=== PATIENT | female | born 1930 | race Caucasian/White ===

== ENCOUNTER → 2016-11-01 08:26 | Outpatient (CLI) | payer MEDICARE, BC ==
[2014-04-06 17:35] VITALS: BMI 33.7
[~2016-11-01 08:26] MED LIST: ATROVENT 0.03%30 ML NS; BRILINTA90 MG PO; CATAPRES0.1 MG PO; CHLORTHALIDONE25 MG PO; COMBIVENT RESPIM4 GM INH; COZAAR100 MG PO; GABAPENTIN100 MG PO; LOPRESSOR25 MG PO; OYSCO 500+D TAB1 TAB PO; PREVACID30 MG PO; RYTHMOL150 MG PO; SYNTHROID100 MCG PO; SYSTANE 0.3-0.4%5 ML EACH EYE; TRUSOPT 2 % OPT10 ML EACH EYE; ULTRACET TABLET1 TAB PO; VITAMIN D31000 UNI2 PO; XARELTO15 MG PO
== END | disposition home or self-care (01) ==
LOC: D.RAD 08:26
DX: J32.9 Chronic sinusitis, unspecified (principal)

== ENCOUNTER 2017-07-29 09:54 | Outpatient (CLI) | payer MEDICARE, BC ==
[~2017-07-29] VITALS: Ht 160 cm; Wt 81.8 kg
--- NOTE | ~2017-07-29 | OP ---
PATIENT NAME: JAVI LINTON MEDICAL RECORD: [id number] :34 LOCATION:D.CAT ADMISSION DATE: SURGEON: ARTURO MARTINEZ MD DATE OF OPERATION: 07/29/2017 PROCEDURE: DC cardioversion. INDICATION: Atrial fibrillation. PROCEDURE IN DETAIL: IV conscious sedation for anesthesia. Continuous heart rate, O2 saturation, blood pressure monitoring all undertaken, all of which remained stable. She received 1 shock at 275 joules restoring sinus rhythm. OVERALL IMPRESSION: Successful DC cardioversion from atrial fibrillation to sinus rhythm. TRANSINT:[id number] Voice Confirmation ID: [id number] DOCUMENT ID: [id number] ARTURO MARTINEZ MD at 1759 CC: [id number] DICTATION DATE: 07/29/17 1326 VIOLENT CRIMES DETECTIVE: 07/29/17 1335 DEP CLI 07/29/17 [place] [id number] [place] [address]
--- NOTE | ~2017-07-29 | HEMODYNAMI ---
PATIENT:JAVI LINTON MEDICAL RECORD: [id number] : 34 LOCATION:[facility] ADMISSION DATE: 07/29/17 Generatedon:07/29/201713:22 Patient name: JAVI LINTON Patient #: [id number] SSN: : 1930 Date of study: 07/29/2017 Page: Of Hemodynamic Procedure Report Patient Data Patient Demographics Procedure consent was obtained First Name: JAVI Gender: Female Last Name: SHAILA : 1930 [facility] Initial: SUSAN Age: 87 year(s) Patient #: [id number] Race: Unknown Additional ID: [id number] Contact details Address: [address] [place] [address] State: [place] City: [place] Zip code: [address] Past Medical History Allergies Allergen Reaction Date Comments Reported Other allergy 07/29/2017 ADHESIVE TAPE, AMIPAQUE, APA, BRILINTA, HYRDOCODONE, SULFA, VERSED, VICODIN Admission Admission Data Admission Date: 07/29/2017 Admission Time: 9:54 Height (in.): 5.4 BSA: 0.32 (m2) Height (cm.): 13.72 BMI: 4484.6 (kg/m2) Weight (lbs.): 186 Weight (kg.): 84.37 Lab Results Lab Result Date: 07/29/2017 Lab Result Time: 0:00 Biochemistry Name Units Result Min Max BUN mg/dl 31 --(----)-* 7 18 Creatinine mg/dl 1.6 --(----)-* 0.6 1.3 CBC Name Units Result Min Max Hemoglobin g/dl 12.3 *-(----)-- 13.5 17.5 Procedure Procedure Types Cath Procedure Diagnostic Procedure Cardioversion Procedure Description Procedure Date Procedure Date: 07/29/2017 Procedure Start Time: 13:13 Procedure End Time: 13:21 Procedure Staff Name Function Sang Shafer MD Performing Physician Yvonne Hollis RT Monitor Felipe Subramanian RT Monitor Shaun Velázquez RN Nurse Morgan Carroll CRNA Additional personnel Procedure Data Procedure Complications No complications Procedure Medications Medication Administration Route Dosage Oxygen NC 2 l/min Refer to Anesthesia Notes for Sedation Medications Hemodynamics Rest BSA: 0.32 (m2) HGB: 12.3 (g/dl) O2 Consumption: Estimated: 34.8 (ml/min) O2 Consumption indexed: Estimated:108.75 (ml/min/m) Heart Rate: 123 (bpm) Snapshots Pre Cath Intra NCS Post Cath Vital Signs Time Heart Resp SPO2 etCO2 NIBP (mmHg) Rhythm Pain Sedation Rate (ipm) (%) (mmHg) Status Level (bpm) 12:51:09 108 21 97 32.4 160/107(125) A-Fib 0 (11) 10(A) , No pain 12:56:18 117 17 98 30.2 156/111(137) A-Fib 0 (11) 10(A) , No pain 13:00:34 110 15 99 0 112/85(104) A-Fib 0 (11) 10(A) , No pain 13:04:44 118 15 100 12 120/87(103) A-Fib 0 (11) 10(A) , No pain 13:09:55 114 16 99 27.1 111/93(97) A-Fib 0 (11) 10(A) , No pain 13:14:03 123 16 98 12.8 130/91(105) NSR 0 (11) 9(A) , No pain 13:18:23 83 15 100 21.1 121/73(98) NSR 0 (11) 9(A) , No pain 13:20:20 84 17 99 27.1 119/81(100) NSR 0 (11) 10(A) , No pain Medications Time Medication Route Dose Verified Delivered Reason Notes Effectiven ess by by 12:54:10 Oxygen NC 2 Sang Dunn used for l/min Hollis Velázquez reception interviewer 12:54:15 Refer to Sang Dunn Anesthesia Hollis Velázquez RN Notes for Sedation Medications Procedure Log Time Note 12:33:17 Shaun Velázquez RN sent for patient. Start room use. 12:37:51 Patient Height : 5.4 inches 12:37:55 Patient Weight : 186 lbs 12:39:19 Patient allergic to Other allergyADHESIVE TAPE, AMIPAQUE, APA, BRILINTA, HYRDOCODONE, SULFA, VERSED, VICODIN 12:42:26 Time tracking: Regular hours 12:42:30 Plan of Care:Hemodynamics will remain stable., Cardiac rhythm will remain stable., Comfort level will be maintained., Respiratory function will remain adequate., Patient/ family verbilizes understanding of procedure., Procedure tolerated without complication., Recovers from procedure without complications.. 12:42:42 Patient arrived from Pre/Post Procedure Room to [facility] 3. Patient remains on bed/stretcher for procedure. 12:42:44 Warm blankets applied, and ronni hugger turned on for patient comfort. 12:42:45 Correct patient and procedure confirmed by team. 12:42:47 Signed procedure consent form obtained from patient. 12:42:48 ECG and BP/O2 sat monitors applied to patient. 12:42:55 Quick Combo opened to sterile field. 12:49:47 Vital chart was started 12:49:53 Baseline sample Acquired. 12:50:02 Rhythm: atrial fibrillation 12:50:08 Baseline sample Acquired. 12:50:11 Full Disclosure recording started 12:50:26 H&P Date Dictated: 07/28/2017 Within 30 days and on chart., H&P Addendum completed by physician on day of procedure. (MUST COMPLETE FOR ALL OUTPATIENTS). 12:50:27 Pre-procedure instructions explained to patient. 12:50:28 Pre-op teaching completed and patient verbalized understanding. 12:50:31 Family in patients room. 12:50:33 Patient NPO since Midnight. 12:50:56 Is the patient allergic to Iodine/contrast media? Yes. 12:50:58 Was the patient premedicated? No 12:51:03 Is patient on blood thinner?Yes 12:51:07 ACC The patient was administered the following blood thiners within the last 24 hours: Xarelto 12:51:38 Patient diabetic? No. 12:51:39 Patient not . Patient is over age 55. 12:51:41 Previous problem with sedation/anesthesia? No ? 12:51:43 Snore? No 12:51:44 Sleep apnea? No 12:51:45 Deviated septum? No 12:51:46 Opens mouth fully? Yes 12:51:46 Sticks out tongue? Yes 12:51:48 Airway obstruction? No ? 12:51:51 Dentures? Yes IN TIGHT 12:52:26 IV patent on arrival in left antecubital with 0.9% NaCl at O. 12:53:49 Lab Result : Creatinine 1.6 mg/dl 12:53:49 Lab Result : BUN 31 mg/dl 12:53:49 Lab Result : Hemoglobin 12.3 g/dl 12:53:52 Lab results completed and on chart. 12:53:55 Alarms reviewed by R. N. 12:53:55 Sharps counted by scrub and verified by R.N. 12:54:10 Oxygen 2 l/min NC was administered by Shaun Velázquez RN; used for procedure; 12:54:15 Refer to Anesthesia Notes for Sedation Medications was administered by Shaun Velázquez RN; ; 12:54:52 Morgan Carroll CRNA present and monitoring patient for TIVA. 13:01:55 --------ALL STOP TIME OUT------ 13:01:56 Final Timeout: patient, procedure, and site verified with staff and physician. All members of the team are in agreement. 13:02:04 Physical assessment completed. ASA score P 2 - A patient with mild systemic disease as per Sang Shafer MD. 13:02:08 Sedation plan: TIVA Medication:Propofol 13:02:10 Morgan Carroll CRNA present and monitoring patient for TIVA. 13:13:04 Procedure started. 13:13:56 Quick combo pads placed on patients chest and back. 13:14:42 Defibrillator synced and charged to 275 joules 13:14:52 Shock delivered. 13:15:03 Patient cardioverted to sinus rhythm . 13:15:36 Procedure ended.(Physican Out) 13:16:05 Post-procedure physical assessment completed. ASA score P 2 - A patient with mild systemic disease as per Sang Shafer MD. 13:16:09 Post procedure rhythm: sinus rhythm 13:16:12 Post procedure instruction explained to patient.Patient verbalizes understanding. 13:16:13 Patient needs reinforcement of post procedure teaching. 13:21:27 Procedure and supply charges have been captured, reviewed, submitted and are correct. 13:21:31 Procedure Complication : No complications 13:21:39 Vital chart was stopped 13:21:40 See physician's report for complete and final results. 13:21:41 Report given to Pre/Post Procedure Room. 13:21:45 Patient transfered to Pre/Post Procedure Room with Bed. 13:21:51 Procedure ended. 13:21:51 Full Disclosure recording stopped 13:21:58 End room use (Document Last) Device Usage Item Manufacture Quantity Catalog Hospital Part Current Minimal Lot# / Name Number Charge Number Fifi marrero# Code Quick LocaMap 1 [id number] Combo Signature Audit [place] Stage Time Signature Unsigned Intra-Procedure 07/29/2017 Yvonne Hollis 1:22:13 PM RT(R) Signatures Monitor : Yvonne Hollis Signature : RT Date : Time : Monitor : Felipe Subramanian RT Signature : Date : Time : [address] [address]
[2017-07-29] MEDS ORDERED: XARELTO20 MG PO (10:45)
[2017-07-29] MEDS ORDERED: CALAN80 MG PO (10:45)
[2017-07-29] MEDS ORDERED: OMEPRAZOLE40 MG PO (10:46)
[2017-07-29] MEDS ORDERED: FUROSEMIDE20 MG PO (10:47)
[2017-07-29] MEDS ORDERED: CALCIUM 600 +1 EAC3 PO (10:48)
[2017-07-29] MEDS ORDERED: VITAMIN D31000 UNIT PO (10:48)
[2017-07-29 11:00] VITALS: BP 140/97; Ht 160 cm; Wt 81.8 kg
[2017-07-29 11:07] LABS: BASOPHILS 0.5 % (0-2); EOSINOPHILS 3.4 % (0-7); HEMATOCRIT 39.3 % (36.0-48.0); HEMOGLOBIN 12.3 g/dL (12-16); IMMATURE GRANULOCYTES 0.3 % (0-5); MCH 28.4 pg (26.0-34.0); MCHC 31.3 g/dL (31.0-37.0); MCV 90.8 fL (80.0-100.0); MEAN PLATELET VOLUME 11.1 fL (7.4-10.4); MONOCYTES 9.7 % (2-11); NEUTROPHILS 73.1 % (40-80); PLATELET COUNT 182 10x3/uL (130-400); RBC 4.33 10x6/uL (4.00-5.40); RDW 14.6 % (11.5-14.5); WBC 8.9 10x3/uL (4.8-10.8)
[2017-07-29 11:17] LABS: ANION GAP 16.1 mmol/L (8-16); CALCIUM 9.1 mg/dL (8.5-10.1); CARBON DIOXIDE 24.2 mmol/L (21.0-32.0); CREATININE - SERUM 1.6 mg/dL (0.6-1.3); POTASSIUM - SERUM 4.3 mmol/L (3.5-5.1)
[2017-07-29 11:18] LABS: INR 2.08 (0.85-1.17); PROTIME 22.7 SECONDS (11.6-15.0)
== END 2017-07-29 15:00 | disposition home or self-care (01) ==
LOC: D.CATH 09:54
PROVIDERS: Internal Medicine Interventional Cardiology
DX: I48.91 Unspecified atrial fibrillation (principal); I25.10 Atherosclerotic heart disease of native coronary artery without angina pectoris; E03.9 Hypothyroidism, unspecified; Z01.812 Encounter for preprocedural laboratory examination

== ENCOUNTER 2017-09-03 15:20 | Inpatient (IN) | payer MEDICARE, BC ==
[~2017-09-03] VITALS: Ht 160 cm; Wt 81.8 kg
--- NOTE | ~2017-09-03 | EC ---
PATIENT:JAVI LINTON DATE OF SERVICE: 09/03/17 SEX: F MEDICAL RECORD: [id number] DATE OF : 34 LOCATION:D.M2 D.211 AGE OF PATIENT: 87 ADMISSION DATE: 09/03/17 REFERRING PHYSICIAN: INTERPRETING PHYSICIAN: JAGDISH LACY MD ECHOCARDIOGRAM REPORT ECHO CHARGES 4 ECHO COMPLETE CLINICAL DIAGNOSIS: AFIB ECHOCARDIOGRAPHIC MEASUREMENTS (adult normal given) AC root (d.<3.7cm) 3.1 cm LV Septum d (<1.2 cm> 1.3 cm Valve Excursion 1.7 cm LV Septum (systole) 1.7 cm Left Atria (s.<4.0cm> 4.0 cm LVPW d(<1.2cm) 1.6 cm RV (d.<2.3cm) 3.5 cm LVPW (sytole) 1.9 cm LV diastole(<5.6CM) 4.6 cm MV E-F(>70mm/sec) cm LV systole 3.1 cm LVOT Diameter 1.6 cm MV exc.(>10mm) 1.5 cm Est.ejection fraction (50-75%) % Pericardial Effusion N DOPPLER: LVIT cm/sec A 53.0 cm/sec E 124 cm/sec LA cm/sec RVSP 62 mmHg LVOT 99 cm/sec AOP1/2T m/s Asc. Ao 153 cm/sec RVOT 69 cm/sec RA cm/sec PA 104 cm/sec AV Gradient Peak 9.31 mmHg AV Mean 4.53 mmHg AV Area 1.3 cm MV Gradient Peak 9.14 mmHg MV Mean 3.37 mmHg MV Area cm COMMENTS: Copy Center Associate: 2 BRYON LU Electrocardiograph Repairer: 3 Dr. Blakely TAPE# PACS DATE OF SERVICE: 09/04/2017 Adequate 2D echo, color flow and spectral Doppler, and M-mode. LVH is present. LV internal dimensions are normal. Wall motion is normal. EF is greater than 55%. Aortic valve is tricuspid. No evidence of stenosis by Doppler interrogation. Left atrium is upper limits of normal at 4.0 cm. Mitral valve is thickened. Mild to moderate MR. Right-sided chamber is grossly normal. Moderate TR. RV systolic pressure is estimated greater than 60 mmHg via the continuity equation. ECHOCARDIOGRAM REPORT [id number] JAVI LINTON TRANSINT:[id number] Voice Confirmation ID: [id number] DOCUMENT ID: [id number] 09/12/2017 Edited to correct date of service, dmm. JAGDISH LACY MD at 1030 CC: [id number] DICTATION DATE: 09/05/17 1311 HEAVY EQUIPMENT OPERATOR/PAVER: 09/05/17 1415 DIS IN 09/05/17 [place] [id number] [place] [id number]
--- NOTE | ~2017-09-03 | HP ---
PATIENT: JAVI LINTON MEDICAL RECORD: [id number] ACCOUNT: [id number] LOCATION:[address] : 32 ADMISSION DATE: 09/03/17 HISTORY AND PHYSICAL EXAMINATION HISTORY OF PRESENT ILLNESS: An 87-year-old female feeling fatigued, short of breath for the past 2 weeks, progressively worse, presented to the Emergency Room yesterday evening for evaluation. PAST MEDICAL HISTORY: Significant for chronic atrial fibrillation, pacemaker placement, coronary artery disease with multiple stent placement, hypothyroidism. CURRENT MEDICATIONS: Listed as Rythmol, Synthroid, tramadol, gabapentin, verapamil, magnesium, omeprazole, clonidine, ipratropium inhaler, eyedrops, prednisolone and latanoprost, Xarelto 20 mg at bedtime, vitamin D, Lasix. She is followed by Dr. Shafer, cardiology, had recent changes in her medications. ALLERGIES: REPORTED SULFA, BRILINTA, NORCO, UNKNOWN DYE, VERSED, TAPE AND SOTALOL. REVIEW OF SYSTEMS: GENERAL: No reported change in weight or appetite. HEENT: No cephalgia, visual changes, tinnitus, epistaxis or dysphagia. CARDIOVASCULAR: Progressive shortness of breath. History as above, dyspnea on exertion. PULMONARY: Denies hemoptysis, denies night sweats. GASTROINTESTINAL: Denies hematemesis, hematochezia or melena. GENITOURINARY: Denies dysuria. MUSCULOSKELETAL: No acute changes. ENDOCRINE: Denies polyuria, polydipsia, or polyphagia. PHYSICAL EXAMINATION: VITAL SIGNS: On admission, temperature 98.4, heart rate 123, irregularly irregular, respirations 16, blood pressure 140/90, O2 sats 98% on room air. GENERAL: Alert and oriented. No present distress. Does complain of itching from the fabric contact with the hospital detergents. HEENT: Normocephalic, atraumatic. Eyes: Pupils are equally round and reactive to light and accommodation. Extraocular muscles intact. Conjunctiva was not injected. Ears: Canals patent, TMs are intact. Nose: Nares patent without drainage. Throat: No erythema, no exudates. NECK: Supple. No lymphadenopathy. HEART: Irregularly irregular. Rate presently controlled. The patient is presently on a Cardizem drip with an intermittent paced rhythm and atrial fibrillation. LUNGS: Clear to auscultation bilaterally. Breathing is nonlabored. ABDOMEN: Soft, nontender. Bowel sounds in all 4 quadrants. EXTREMITIES: Present times 4. Trace edema. NEUROLOGICAL: Cranial nerves II-XII appear intact. No appreciable focal deficits. SKIN: Warm, dry. Does complain of itching. No significant rash appreciated. DIAGNOSTIC DATA: EKG; atrial fibrillation with rapid ventricular response, rate of 116. Telemetry readings after placement of a drip, paste, and Afib rate controlled. HISTORY AND PHYSICAL [id number] JAVI LINTON SUSAN LABORATORY DATA: CBC; white count 7.5, hemoglobin 10.1, hematocrit 32.8, platelets 216. Chemistry shows a BUN 21, creatinine 1.2, glucose 98, calcium 8.1, T-bili 0.6, AST 80, ALT 113, alkaline phosphatase 50. INR is therapeutic at 2.02. D-dimer is slightly elevated at 1.62. ASSESSMENT AND PLAN: 1. The patient is admitted for atrial fibrillation with rapid ventricular response. Cardiology consulted. The patient was admitted with Cardizem drip. Cardiac enzymes cycled. CK-MB, troponin remained negative. BNP elevated at 2276. 2. Hypothyroid. We will check TSH, monitor. Continue levothyroxine. 3. Urticaria p.r.n. Vistaril p.o. Chest x-ray obtained in the ER showed no active disease, pacemaker appears in place. We will monitor supportive care. TRANSINT:[id number] Voice Confirmation ID: [id number] DOCUMENT ID: [id number] KAYLEE GHOTRA DO at 1310 CC: [id number] DICTATION DATE: 09/04/17 1159 AUTO DESIGN DETAILER: 09/04/17 1304 ADM IN [facility] [address] [place] [address]
--- NOTE | ~2017-09-03 | CN ---
PATIENT NAME:JAVI LINTON MEDICAL RECORD: [id number] : 32 LOCATION:D. D.2115 ADMIT DATE: 09/03/17 ACCOUNT: [id number] CONSULTING PHYSICIAN: LUCIANO PEREIRA MD REFERRING PHYSICIAN: KAYLEE GHOTRA DO DATE OF CONSULTATION: 09/05/2017 Psychiatric Evaluation Consultation IDENTIFYING DATA: The patient is 87 years old and admitted to the hospital on a voluntary basis. CHIEF COMPLAINT: Confusion and agitation. HISTORY OF PRESENT ILLNESS: The patient has a cardiac arrhythmia. Specifically, she has atrial fibrillation with rapid ventricular response. She was admitted for stabilization of her cardiac symptoms and this morning apparently became quite confused, agitated, and pulled out her IV. When I went her this afternoon, she is sitting calmly beside the bed, speaking with her drilling plant operator. She reluctantly talks to me. Says she does not need to speak to me, but is not rude or unpleasant and does cooperate. She insists there is nothing wrong with her and does answer questions thoroughly. She denies substance abuse, depressive symptoms, and tells me that she was completely independently managing her own financial affairs and taking herself to and from the doctor as needs to and doing her own light housework and cooking. MENTAL STATUS EXAMINATION: The patient is awake, alert, and oriented to person, place, time, and situation. Her mood is euthymic. Her affect is appropriate. Thought processes are circumstantial. Memory, concentration, and abstraction abilities are mildly impaired. She denies intent to harm herself or others as well as overt psychotic symptoms. ASSESSMENT: 1. Delirium, resolved. 2. Rule out dementia. PLAN: The patient probably is demented. It is not severe. She is 87 years old and just statistically a half of all 85-year-old's have the diagnosis of dementia. She also has a cardiac arrhythmia that would incline her to have microvascular infarcts. I see where she was prescribed some Vistaril for itching and certainly that would be a likely culprit in causing some delirium. I discontinued it. The patient was very polite and very cooperative, but insists that she does not need to speak with me or have any kind of cognitive impairment. She says her son who lives in [place] has been talking to her about moving there. He has to be in [place] because of his job. She says she really does not want to because she has deep roots family and friends and relationships here. Her other son is and has been for 20 years. Her in 2006. I think, the patient probably has an early, perhaps moderate dementia. I would have serious concerns about her living independently, but not such that it would rise to the level of reporting her to adult protective services or trying to institute some kind of a hold. I would recommend that her primary care physician contact her son and let him know about the situation to see if there is something he can do. I would also recommend starting her on a low dose of a cholinesterase inhibitor, perhaps Aricept 5 mg at bedtime. She will probably be willing to accept this from her primary care CONSULT REPORT [id number] JAVI LINTON physician as opposed to me. In addition to that, I do not think it is unreasonable for someone perhaps even if it is only the son to do some welfare checks on her. It sounds as though she has no contingency plans for the day when she cannot live alone. She is a very nice lady, certainly has lived much of her life in a psychologically healthy manner, free of any significant psychopathology, however, at this point, she is declining and I think it would be very unfortunate to have her hurt before she has made arrangements that could be made ahead of time. From my standpoint, there is no reason she cannot be discharged. I will just ask that her primary care physician receive a copy of this and also perhaps that he consider referring her to Dr. Aysha Kyle for neuropsychological testing. TRANSINT:[id number] Voice Confirmation ID: [id number] DOCUMENT ID: [id number] LUCIANO PEREIRA MD at 1446 CC: [id number] DICTATION DATE: 09/05/17 1428 LAYAWAY CLERK: 09/05/17 1510 DIS IN 09/05/17 [facility] [address] [facility] [address]
--- NOTE | ~2017-09-03 | CN ---
PATIENT NAME:JAVI LINTON MEDICAL RECORD: [id number] : 34 LOCATION:D. D.2115 ADMIT DATE: 09/03/17 ACCOUNT: [id number] CONSULTING PHYSICIAN: JAGDISH LACY MD REFERRING PHYSICIAN: KAYLEE GHOTRA DO DATE OF CONSULTATION: 09/04/2017 HISTORY OF PRESENT ILLNESS: An 87-year-old lady with a history of sick sinus syndrome, status post pacemaker, recently cardioverted on propafenone normal sinus rhythm stated less than a couple of weeks, admitted with atrial fibrillation and RVR, rates somewhat better on diltiazem drip. She does have a pacemaker as back up. She has been on anticoagulation in the form of rivaroxaban. We are asked to see her concerning her cardiovascular status. PAST MEDICAL HISTORY: Includes: 1. History of hypertension. 2. Coronary artery disease. 3. Hypothyroidism, on replacement. MEDICATION ALLERGIES: INCLUDE SULFA, HYDROCODONE, ACETAMINOPHEN, OMNIPAQUE, SOTALOL, VERSED, BRILINTA. MEDICATIONS: Include Xarelto 20 every day, propafenone 150 t.i.d., Calan 120 b.i.d., Neurontin 300 mg t.i.d., Lasix 20 every day, Atrovent inhaler, omeprazole 40 every day, Synthroid 112 mcg every day. SOCIAL HISTORY: She is a nonsmoker and nondrinker. She is able to take care of her ADLs. REVIEW OF SYSTEMS: The patient reports easy bruising but reports no swollen glands. The patient reports no fever, no night sweats, no significant weight gain, no significant weight loss. No significant exercise tolerance. The patient reports no dry eyes, no irritation, no vision change. Patient reports no difficulty hearing and no ear pain. Patient reports no frequent nose bleeds or nose and sinus problems. Patient reports on arm pain on exertion. No shortness of breath while lying down. No history of heart murmur. Patient reports no cough, no wheezing or coughing up blood. Patient reports no abdominal pain, no vomiting. Normal appetite. No diarrhea and not vomiting blood. No nausea and no constipation. Patient reports no incontinence. No difficulty urinating. No hematuria. No increased frequency. Patient reports no muscle aches. No weakness, no arthralgias, no back pain. No swelling of the extremities. Patient reports no abnormal mole, no jaundice, no rashes. Reports no loss of consciousness. No weakness and no numbness. No seizures, dizziness, or headaches. The patient reports no depression, no sleep disturbance, feeling safe in a relationship and no alcohol abuse. Patient reports on fatigue. Reports no runny nose or sinus pressure. No itching, no hives, and no frequent sneezing. PHYSICAL EXAMINATION: GENERAL: Elderly female in no acute distress. VITAL SIGNS: Pulse currently 98 and irregular and blood pressure 136/78. HEENT: Normocephalic, atraumatic. NECK: No bruits noted. HEART: Irregular, rate is mildly tachycardic, II/ systolic ejection murmur. LUNGS: Fairly good air excursion. CONSULT REPORT [id number] JAVI LINTON ABDOMEN: Soft, nontender. EXTREMITIES: Pulses 2+ with no edema. DIAGNOSTIC DATA: ECG shows atrial fibrillation with rapid ventricular response. IMPRESSION: Recurrent atrial fibrillation. At this point in time, I doubt the patient is a candidate for maintenance of sinus rhythm, been intolerant to multiple agents in the past. As per the AFFIRM trial, we would strive for rate control and anticoagulation. We will add digoxin. We will continue Cardizem drip. We will check echocardiogram study. TRANSINT:[id number] Voice Confirmation ID: [id number] DOCUMENT ID: [id number] JAGDISH LACY MD at 0919 CC: [id number] DICTATION DATE: 09/04/17 0858 ROOF FOREMAN: 09/04/17 1345 DIS IN 09/05/17 [facility] [address] [place] [id number]
[~2017-09-03 15:20] MED LIST changes: +CALAN80 MG PO; +CALCIUM 600 +1 EAC3 PO; +FUROSEMIDE20 MG PO; +OMEPRAZOLE40 MG PO; +PROPAFENONE HC150 MG PO; -RYTHMOL150 MG PO; +VITAMIN D31000 UNIT PO; +XARELTO20 MG PO
[2017-09-03 17:35] LABS: BASOPHILS 0.4 % (0-2); HEMATOCRIT 36.5 % (36.0-48.0); HEMOGLOBIN 11.2 g/dL (12-16); IMMATURE GRANULOCYTES 0.2 % (0-5); LYMPHOCYTES 16.8 % (15-50); MCH 26.8 pg (26.0-34.0); MCHC 30.7 g/dL (31.0-37.0); MCV 87.3 fL (80.0-100.0); MONOCYTES 10.7 % (2-11); NEUTROPHILS 68.9 % (40-80); PLATELET COUNT 228 10x3/uL (130-400); RBC 4.18 10x6/uL (4.00-5.40); RDW 14.3 % (11.5-14.5); WBC 9.9 10x3/uL (4.8-10.8)
[2017-09-03 17:43] LABS: INR 2.02 (0.85-1.17); PROTIME 22.3 SECONDS (11.6-15.0)
[2017-09-03 17:44] LABS: APTT 38.2 SECONDS (22.8-39.4)
[2017-09-03 17:45] LABS: D-DIMER-QUANTITATIVE 1.62 ug/mLFEU (0.20-0.54)
[2017-09-03 17:46] LABS: ALBUMIN 3.8 g/dL (3.4-5.0); ALKALINE PHOSPHATASE 64 U/L (46-116); ALT (SGPT) 121 U/L (10-68); BILIRUBIN - TOTAL 0.43 mg/dL (0.2-1.3); CALC OSMOLALITY 290 mosm/kg (275-300); CALCIUM 9.2 mg/dL (8.5-10.1); CARBON DIOXIDE 26.8 mmol/L (21.0-32.0); CHLORIDE - SERUM 106 mmol/L (98-107); CREATININE - SERUM 1.6 mg/dL (0.6-1.3); GLUCOSE 101 mg/dL (74-106); POTASSIUM - SERUM 3.9 mmol/L (3.5-5.1); PROTEIN - SERUM 7.1 g/dL (6.4-8.2); SODIUM 143 mmol/L (136-145); UREA NITROGEN 28 mg/dL (7-18); eGFR NON AFRICAN AMERICAN 32 mL/min (90-120)
[2017-09-03 17:59] LABS: CKMB 0.9 U/L (0.0-3.6); CREATINE KINASE 66 UL (21-215); MAGNESIUM - SERUM 2.1 mg/dL (1.8-2.4); PRO BNP 2276 pg/mL (0-450)
[2017-09-03 18:00] LABS: TROPONIN-I < 0.017 ng/mL (0.000-0.060)
[2017-09-03] MEDS ORDERED: NEURONTIN 300300 MG PO (19:53)
[2017-09-03] MEDS ORDERED: CALAN120 MG PO (19:54)
[2017-09-03] MEDS ORDERED: MAGNESIUM OXID500 MG PO (19:55)
[2017-09-03] MEDS ORDERED: XALATAN 0.0052.5 ML EACH EYE (19:57)
[2017-09-03] MEDS ORDERED: VITAMIN D31000 UNIT PO (19:59)
[2017-09-03] MEDS ORDERED: PRED FORTE5 ML LEFT EYE (20:00)
[2017-09-03 20:03] VITALS: BP 147/84; Ht 160 cm; Wt 81.8 kg
[2017-09-04 04:00] VITALS: BP 136/78
[2017-09-04 05:01] LABS: BASOPHILS 0.5 % (0-2); EOSINOPHILS 3.5 % (0-7); HEMATOCRIT 32.8 % (36.0-48.0); HEMOGLOBIN 10.1 g/dL (12-16); IMMATURE GRANULOCYTES 0.3 % (0-5); LYMPHOCYTES 12.7 % (15-50); MCH 26.7 pg (26.0-34.0); MCHC 30.8 g/dL (31.0-37.0); MCV 86.8 fL (80.0-100.0); PLATELET COUNT 216 10x3/uL (130-400); RBC 3.78 10x6/uL (4.00-5.40); RDW 14.3 % (11.5-14.5); WBC 7.5 10x3/uL (4.8-10.8)
[2017-09-04 05:31] LABS: ALBUMIN 3.1 g/dL (3.4-5.0); ANION GAP 13.9 mmol/L (8-16); BILIRUBIN - TOTAL 0.6 mg/dL (0.2-1.3); CALCIUM 8.1 mg/dL (8.5-10.1); CARBON DIOXIDE 24.8 mmol/L (21.0-32.0); CREATININE - SERUM 1.2 mg/dL (0.6-1.3); POTASSIUM - SERUM 3.7 mmol/L (3.5-5.1)
[2017-09-04 08:59] VITALS: BP 156/81
[2017-09-04 13:10] VITALS: BP 146/73
[2017-09-04 15:55] VITALS: BP 140/74
[2017-09-04 19:35] VITALS: BP 147/66
[2017-09-05 01:33] VITALS: BP 176/84
[2017-09-05 05:53] VITALS: BP 168/84
[2017-09-05 08:46] VITALS: BP 151/93
[2017-09-05 09:01] LABS: BASOPHILS 0.5 % (0-2); EOSINOPHILS 1.1 % (0-7); HEMATOCRIT 37.2 % (36.0-48.0); HEMOGLOBIN 11.7 g/dL (12-16); IMMATURE GRANULOCYTES 0.3 % (0-5); LYMPHOCYTES 11.2 % (15-50); MCHC 31.5 g/dL (31.0-37.0); MCV 85.7 fL (80.0-100.0); MEAN PLATELET VOLUME 11.2 fL (7.4-10.4); NEUTROPHILS 77.9 % (40-80); PLATELET COUNT 273 10x3/uL (130-400); RBC 4.34 10x6/uL (4.00-5.40); RDW 14.1 % (11.5-14.5); WBC 9.8 10x3/uL (4.8-10.8)
[2017-09-05 09:35] LABS: CARBON DIOXIDE 26.7 mmol/L (21.0-32.0); CREATININE - SERUM 1.2 mg/dL (0.6-1.3); POTASSIUM - SERUM 3.7 mmol/L (3.5-5.1); THYROID STIMULATING HORMONE 3.18 uIU/mL (0.36-3.74)
[2017-09-05 12:54] VITALS: BP 120/63
[2017-09-05 16:11] VITALS: BP 130/70
[2017-09-05] MEDS ORDERED: LANOXIN125 MCG PO (16:27)
[2017-09-05] MEDS ORDERED: RYTHMOL PO (16:27)
[2017-09-05] MEDS ORDERED: LANOXIN250 MCG PO (16:40)
[2017-09-05] MEDS ORDERED: XARELTO20 MG PO (16:40)
== END 2017-09-05 20:23 | disposition home health service (06) | DRG 309 ==
LOC: D.ER 15:20 → D.M2 19:01
PROVIDERS: Family Medicine
DX: I48.91 Unspecified atrial fibrillation (principal); F05 Delirium due to known physiological condition; F03.91 Unspecified dementia, unspecified severity, with behavioral disturbance; Z79.01 Long term (current) use of anticoagulants; I25.10 Atherosclerotic heart disease of native coronary artery without angina pectoris; Z95.0 Presence of cardiac pacemaker; I10 Essential (primary) hypertension; E03.9 Hypothyroidism, unspecified; Z95.5 Presence of coronary angioplasty implant and graft

== ENCOUNTER → 2017-09-29 10:55 | Outpatient (CLI) | payer MEDICARE, BC ==
[2017-09-03 20:03] VITALS: BMI 31.9
[~2017-09-29 10:55] MED LIST changes: +CALAN120 MG PO; +LANOXIN125 MCG PO; +LANOXIN250 MCG PO; +MAGNESIUM OXID500 MG PO; +NEURONTIN 300300 MG PO; +PRED FORTE5 ML LEFT EYE; +RYTHMOL PO; +XALATAN 0.0052.5 ML EACH EYE
== END | disposition home or self-care (01) ==
LOC: D.LABREF 10:55
DX: I48.91 Unspecified atrial fibrillation (principal)

== ENCOUNTER → 2017-12-30 13:19 | Outpatient (CLI) | payer MEDICARE, BC ==
[2017-09-03 20:03] VITALS: BMI 31.9
[~2017-12-30 13:19] MED LIST changes: +BUSPAR10 MG PO; +NAMENDA5 MG PO; +TRAZODONE HCL50 MG PO
== END | disposition home or self-care (01) ==
LOC: D.CT 13:19
DX: M48.061 Spinal stenosis, lumbar region without neurogenic claudication (principal)

== ENCOUNTER 2018-02-02 14:45 | Inpatient (IN) | payer MEDICARE, BC ==
[~2018-02-02] VITALS: Ht 160 cm; Wt 72.4 kg
--- NOTE | ~2018-02-02 | PN ---
PATIENT:JAVI LINTON MEDICAL RECORD: [id number] LOCATION:[facility] ADMISSION DATE: 02/02/18 PROGRESS NOTE DATE OF SERVICE: 02/10/2018 SUBJECTIVE: The patient's case was discussed with staff. She has no new complaint. OBJECTIVE: The patient is in good behavioral control with limited insight about her condition. She tolerates her medicines well. ASSESSMENT: No change in diagnoses. PLAN: Supportive and educational interventions were made. Long-term prognosis is guarded. TRANSINT:[id number] Voice Confirmation ID: [id number] DOCUMENT ID: [id number] LUCIANO PEREIRA MD at 0742 CC: [id number] DICTATION DATE: 02/10/18 1439 PRESCRIPTIONIST: 02/10/18 1449 ADM IN [address] [address]
--- NOTE | ~2018-02-02 | PN ---
PATIENT:JAVI LINTON MEDICAL RECORD: [id number] LOCATION:[facility] ADMISSION DATE: 02/02/18 PROGRESS NOTE DATE OF SERVICE: 02/07/2018 SUBJECTIVE: The patient's case was discussed with staff. She has no new complaint. OBJECTIVE: The patient is in good behavioral control with limited insight about her condition. She is tolerating her medicines well. She denies that she would seek to harm herself or others. ASSESSMENT: No change in diagnoses. PLAN: Brief supportive and educational interventions were made. Long-term prognosis is guarded. I anticipate she can be transitioned out of the hospital soon. TRANSINT:[id number] Voice Confirmation ID: [id number] DOCUMENT ID: [id number] LUCIANO PEREIRA MD at 1520 CC: [id number] DICTATION DATE: 02/07/18 1522 OPHTHALMIC TECHNICIAN: 02/07/18 1636 ADM IN [place] [id number] [place] [id number]
--- NOTE | ~2018-02-02 | PSY ---
PATIENT NAME:JAVI LINTON MEDICAL RECORD: [id number] : 34 LOCATION:[facility]1 ADMISSION DATE: 02/02/18 ACCOUNT: [id number] PSYCHIATRIC EVALUATION DATE OF EVALUATION: 02/03/18 IDENTIFYING DATA: The patient is 87 years old and she is admitted to the hospital on a voluntary basis. CHIEF COMPLAINT: Agitation. HISTORY OF PRESENT ILLNESS: The patient is an elderly woman, who lives alone. She has a paid caregiver who checks on her regularly. The caregiver came to the patient's house yesterday and the patient was naked, confused and agitated. The patient was brought to the Emergency Room where she proceeded to hit, kick and bite the nurse. She is extremely agitated, upset and disorganized, but cannot say what is wrong or why. Although she has not been formally diagnosed with dementia in the past, it is clear that it has been present for a long time and this may simply represent an as to be expected disease progression. The patient is angry and will answer a few questions, but does not want to talk to me. She had been behaving in the house in a very strange way. She had been pulling wires and phone cords out of the wall, but cannot say why she was doing this. PAST MEDICAL HISTORY: Significant for arthritis, hypertension, congestive heart failure, hypothyroidism. PAST PSYCHIATRIC HISTORY: Significant for anxiety and depression and actually the patient is taking Namenda so somebody must have felt that she was declining cognitively. FAMILY HISTORY: Unknown. SOCIAL HISTORY: The patient is and lives alone. She does have an adult son who is involved with her care and I believe he is the one who has hired the caregiver. She is not very forthcoming with information and even when she does answer I am not sure that it is accurate, but she denies a history of drug or alcohol abuse. ALLERGIES: SULFA, HYDROCODONE and MIDAZOLAM. CURRENT MEDICATIONS: Include digoxin, Xarelto, Calan, Lasix, Lanoxin, Cozaar, Namenda, Synthroid, Neurontin, gabapentin, magnesium oxide, multiple vitamins, Ultracet, Combivent, Catapres. MENTAL STATUS EXAMINATION: The patient is awake, alert and oriented to person only. Her mood is angry. Her affect is constricted. Thought processes are circumstantial. Memory, concentration, and abstract abilities are at least moderately impaired and the patient denies any active intent to harm herself or others as well as overt psychotic symptoms. ASSETS: Supportive family members. LIABILITIES: Limited insight. DIAGNOSTIC IMPRESSION: AXIS I: Senile dementia of the Alzheimer's type with behavioral disturbances. AXIS II: None. AXIS III: Hypertension, congestive heart failure, hypothyroidism, COPD. AXIS IV: Moderate stressors. AXIS V: Global assessment of functioning is 30. PLAN: At this time, the patient is admitted to the hospital for a comprehensive medical, psychological, and social evaluation. She will be treated with both mood stabilizing and memory enhancing medications. Her long-term prognosis is guarded. TRANSINT:[id number] Voice Confirmation ID: [id number] DOCUMENT ID: [id number] LUCIANO PEREIRA MD at 1007 CC: [id number] DICTATION DATE: 02/03/18 1404 CONTROL CHEMIST: 02/03/18 1414 ADM IN [place] [id number] [place] [id number]
--- NOTE | ~2018-02-02 | PN ---
PATIENT:JAVI LINTON MEDICAL RECORD: [id number] LOCATION:RUSSELL Love ADMISSION DATE: 02/02/18 PROGRESS NOTE DATE OF SERVICE: 02/14/2018 SUBJECTIVE: The patient's case was discussed with staff. She has no new complaint. OBJECTIVE: The patient is in good behavioral control with limited insight about her condition. She generally tolerates her medicines well. ASSESSMENT: No change in diagnoses. PLAN: The patient has not been sleeping very well. I am going to prescribe trazodone at a dose of 25 mg at bedtime to assist with her sleep consolidation. She will be monitored for clinical changes associated with this. Her long-term prognosis is guarded. TRANSINT:[id number] Voice Confirmation ID: [id number] DOCUMENT ID: [id number] LUCIANO PEREIRA MD at 1315 CC: [id number] DICTATION DATE: 02/14/18 1417 RETAIL PHARMACY MERCHANDISER: 02/14/18 1431 ADM IN [place] [id number] [place] [address]
--- NOTE | ~2018-02-02 | PN ---
PATIENT:JAVI LINTON MEDICAL RECORD: [id number] LOCATION:RichaROBR[facility]ann ChaudhryRandy ADMISSION DATE: 02/02/18 PROGRESS NOTE DATE OF SERVICE: 02/16/2018 SUBJECTIVE: The patient's case was discussed with staff. She has no new complaint. OBJECTIVE: The patient is in good behavioral control with limited insight about her condition. She tolerates her medicines well. ASSESSMENT: No change in diagnoses. PLAN: The patient will be discharged tomorrow. Her son from [place] is going to pick her up and he has made arrangements for her care in [place]. TRANSINT:[id number] Voice Confirmation ID: [id number] DOCUMENT ID: [id number] LUCIANO PEREIRA MD at 1710 CC: [id number] DICTATION DATE: 02/16/18 1415 GRAIN PACKER: 02/16/18 1420 DIS IN 02/17/18 [facility] [address] [place] [address]
--- NOTE | ~2018-02-02 | PN ---
PATIENT:JAVI LINTON MEDICAL RECORD: [id number] LOCATION:RUSSELL GarsiaHelgaDamián ADMISSION DATE: 02/02/18 PROGRESS NOTE DATE OF SERVICE: 02/11/2018 SUBJECTIVE: The patient's case was discussed with staff. She has no new complaint. OBJECTIVE: The patient is in good behavioral control with limited insight about her condition. She slept 8 hours last night, but did require some p.r.n. tramadol for discomfort. She ate reasonably well yesterday. She continues to be quite confused with pretty limited insight about her situation. ASSESSMENT: No change in diagnoses. PLAN: Brief supportive and educational interventions were made. Long-term prognosis is guarded. TRANSINT:[id number] Voice Confirmation ID: [id number] DOCUMENT ID: [id number] LUCIANO PEREIRA MD at 0949 CC: [id number] DICTATION DATE: 02/11/18 0807 BAND INSTRUMENT MAKER: 02/11/18 0823 ADM IN [place] [id number] [place] [id number]
--- NOTE | ~2018-02-02 | PN ---
PATIENT:JAVI LINTON MEDICAL RECORD: [id number] LOCATION:Sun[facility]IRAGRaeann Richa113 ADMISSION DATE: 02/02/18 PROGRESS NOTE DATE OF SERVICE: 02/13/2018 SUBJECTIVE: The patient's case was discussed with staff. She has no new complaint. OBJECTIVE: The patient is in good behavioral control. She is denying any intent to harm herself or others and has a near euthymic mood. She says she wants to go to [place] and be with her son. ASSESSMENT: No change in diagnoses. PLAN: The patient is little bit anxious. I am going to increase the dose of the BuSpar from 5 to 10 mg twice daily. She will be monitored for clinical changes. I anticipate that arrangements can be made for her to go to be with her son in [place] sometime this week. TRANSINT:[id number] Voice Confirmation ID: [id number] DOCUMENT ID: [id number] LUCIANO PEREIRA MD at 1402 CC: [id number] DICTATION DATE: 02/13/18 1419 LINE CLOSER: 02/13/18 1444 ADM IN [facility] [address] [place] [id number]
--- NOTE | ~2018-02-02 | PN ---
PATIENT:JAVI LINTON MEDICAL RECORD: [id number] LOCATION:RUSSELL ChaudhryDamián ADMISSION DATE: 02/02/18 PROGRESS NOTE DATE OF SERVICE: 02/06/2018 SUBJECTIVE: The patient's case was discussed with staff. She has no new complaint. OBJECTIVE: The patient is in good behavioral control with limited insight about her condition. She is significantly impaired cognitively. ASSESSMENT: No change in diagnoses. PLAN: Supportive and educational interventions were made. I am going to increase the patient's Namenda to 5 mg twice daily. She does have a son who lives in [place], who is very involved with her care; and at this point, we are looking for a detention in that area so that he can see her more often. TRANSINT:[id number] Voice Confirmation ID: [id number] DOCUMENT ID: [id number] LUCIANO PEREIRA MD at 1508 CC: [id number] DICTATION DATE: 02/06/18 1439 CLEARANCE COORDINATOR: 02/06/18 1534 ADM IN [place] [id number] [place] [address]
--- NOTE | ~2018-02-02 | DS ---
PATIENT:JAVI LINTON :34 MEDICAL RECORD: [id number] DISCHARGE SUMMARY ADMISSION DATE: 02/02/18 DISCHARGE DATE: 02/17/18 IDENTIFYING DATA: The patient is 87 years old and she was admitted to the hospital on a voluntary basis because of agitation. The patient was living alone and had a paid caregiver who was checking on her regularly. The caregiver came to the patient's house just prior to admission and the patient was naked, confused and agitated. The patient was subsequently brought to the Emergency Room where she proceeded to hit, kick and bite nursing staff. She was extremely distressed, disorganized and agitated. She could not explain what was wrong, but was clearly out of control. Apparently, she had not been formally diagnosed with the dementia, but cognitive decline had been suspected for some time. The patient was initially angry and uncooperative. She had been pulling the wires on the telephone cords on the wall angrily. HOSPITAL COURSE: The patient was admitted to the hospital and fully evaluated from both a medical, psychological, and social standpoint. She was treated with both memory enhancing and mood stabilizing medications. She showed significant improvement. She was in need of 47-xkeq-o-day supervision and arrangements were made to assist her with those needs and placing her in an environment where she could receive that care. DISCHARGE DIAGNOSES: AXIS I: Senile dementia of the Alzheimer's type with behavioral disturbances. AXIS II: None. AXIS III: Hypertension, congestive heart failure, hypothyroidism and chronic obstructive pulmonary disease. AXIS IV: Moderate stressors. AXIS V: Global assessment of functioning is 35. PLAN: At the time of discharge, the patient was in good behavioral control with limited insight about her condition. She was tolerating her medicines well. Followup was to be with her primary care physician. There was no evidence of acute or direct dangerousness. TRANSINT:[id number] Voice Confirmation ID: [id number] DOCUMENT ID: [id number] LUCIANO PEREIRA MD at 1203 CC: [id number] DICTATION DATE: 02/21/18 1433 PROTEIN SCIENTIST: 02/21/18 1628 DIS IN 02/17/18 [facility] [address] [place] [address]
--- NOTE | ~2018-02-02 | PN ---
PATIENT:AJVI LINTON MEDICAL RECORD: [id number] LOCATION:SunCHIRAGRaeann Chaudhry112 ADMISSION DATE: 02/02/18 PROGRESS NOTE DATE OF SERVICE: 02/08/2018 SUBJECTIVE: The patient's case was discussed with staff. She has no new complaint. OBJECTIVE: The patient denies intent to harm herself or others. She tolerates her medicines well. She is severely impaired cognitively. ASSESSMENT: No change in diagnoses. PLAN: Current medicines and therapies have been reviewed. It is my understanding that her son and the social media assistant are working on placement for her in [place]. I very much agree with this. Her long-term prognosis is guarded. TRANSINT:[id number] Voice Confirmation ID: [id number] DOCUMENT ID: [id number] LUCIANO PEREIRA MD at 0849 CC: [id number] DICTATION DATE: 02/08/18 1542 SENIOR QUALITY TECHNICIAN: 02/08/18 1720 ADM IN [place] [address] [place] [address]
--- NOTE | ~2018-02-02 | PN ---
PATIENT:JAVI LINTON MEDICAL RECORD: [id number] LOCATION:RUSSELL Corral ADMISSION DATE: 02/02/18 PROGRESS NOTE DATE OF SERVICE: 02/09/2018 SUBJECTIVE: The patient's case was discussed with staff. She has no new complaint. OBJECTIVE: The patient denies intent to harm herself or others. She generally tolerates her medicines well. Eye contact is fair. Concentration is fair. ASSESSMENT: No change in diagnoses. PLAN: Brief supportive and educational interventions were made. Long-term prognosis is guarded. The patient will be placed in a [facility] probably after the weekend some time that is assuming this level of improvement continues. TRANSINT:[id number] Voice Confirmation ID: [id number] DOCUMENT ID: [id number] LUCIANO PEREIRA MD at 1223 CC: [id number] DICTATION DATE: 02/09/18 1337 REGIONAL SALES DIRECTOR: 02/09/18 1640 ADM IN [place] [id number] [place] [id number]
--- NOTE | ~2018-02-02 | PN ---
PATIENT:JAVI LINTON MEDICAL RECORD: [id number] LOCATION:RUSSELL ChaudhryDamián ADMISSION DATE: 02/02/18 PROGRESS NOTE DATE OF SERVICE: 02/12/2018 SUBJECTIVE: The patient's case was discussed with staff. She has no new complaint. OBJECTIVE: The patient only slept 4 hours last night, but does not appear tired today. She ate very well yesterday. There have been no aggressive behaviors today. Generally, she slept reasonably well and I hesitate to start her on a hypnotic based on one night's bad sleep. I will monitor her for another day or two, but do anticipate that she is getting close to being ready for discharge. ASSESSMENT: No change in diagnoses. PLAN: Supportive and educational interventions were made. Long-term prognosis is guarded. TRANSINT:[id number] Voice Confirmation ID: [id number] DOCUMENT ID: [id number] LUCIANO PEREIRA MD at 1427 CC: [id number] DICTATION DATE: 02/12/18 0959 CELLULAR PLASTICS CUTTER: 02/12/18 1236 ADM IN [facility] [address] [place] [address]
--- NOTE | ~2018-02-02 | PN ---
PATIENT:JAVI LINTON MEDICAL RECORD: [id number] LOCATION:RUSSELL ChaudhryDamián ADMISSION DATE: 02/02/18 PROGRESS NOTE DATE OF SERVICE: 02/04/2018 SUBJECTIVE: The patient's case was discussed with staff. She has no new complaint. OBJECTIVE: The patient is in good behavioral control with limited insight about her condition. She does tolerate her medicines well. Eye contact is fair. Concentration is fair. ASSESSMENT: No change in diagnoses. PLAN: Current medicines and therapies have been reviewed, both will be maintained. Long-term prognosis is guarded. I have started her on Aricept and will continue to monitor her for clinical changes. TRANSINT:[id number] Voice Confirmation ID: [id number] DOCUMENT ID: [id number] LUCIANO PEREIRA MD at 1039 CC: [id number] DICTATION DATE: 02/04/18 1135 RACKING MACHINE OPERATOR: 02/04/18 1151 ADM IN [place] [id number] [place] [address]
--- NOTE | ~2018-02-02 | PN ---
PATIENT:JAVI LINTON MEDICAL RECORD: [id number] LOCATION:RUSSELL Corral ADMISSION DATE: 02/02/18 PROGRESS NOTE DATE OF SERVICE: 02/05/2018 SUBJECTIVE: The patient's case was discussed with staff. She has no new complaint. OBJECTIVE: The patient denies intent to harm herself or others. She generally tolerates her medicines well. ASSESSMENT: No change in diagnoses. PLAN: Supportive and educational interventions were made. Long-term prognosis is guarded. I am going to give the patient a low dose of BuSpar because of some restlessness. She will be monitored carefully for clinical changes. It appears clear to me that she is going to require 27-kwmx-c-day supervision. TRANSINT:[id number] Voice Confirmation ID: [id number] DOCUMENT ID: [id number] LUCIANO PEREIRA MD at 1320 CC: [id number] DICTATION DATE: 02/05/18 1055 HEAD BAGGAGE PORTER: 02/05/18 1141 ADM IN [place] [id number] [place] [address]
--- NOTE | ~2018-02-02 | PN ---
PATIENT:JAVI LINTON MEDICAL RECORD: [id number] LOCATION:RUSSELL Chaudhry113 ADMISSION DATE: 02/02/18 PROGRESS NOTE DATE OF SERVICE: 02/15/2018 SUBJECTIVE: The patient's case was discussed with staff. She has no new complaint. OBJECTIVE: The patient is in good behavioral control with limited insight about her condition. She tolerates her medicines well. ASSESSMENT: No change in diagnoses. PLAN: The patient's medicines are working reasonably well. I do not see evidence of acute or direct dangerousness. Her son from [place] is going to be able to pick her up at 10 o'clock on Tuesday morning. He is going to take her back to the [place] to his own home. He and his family are looking for placement for the patient in the [facility]. This plan is very acceptable to the patient. TRANSINT:[id number] Voice Confirmation ID: [id number] DOCUMENT ID: [id number] LUCIANO PEREIRA MD at 1329 CC: [id number] DICTATION DATE: 02/15/18 1352 AIRPLANE FLIGHT ATTENDANT SUPERVISOR: 02/15/18 1437 ADM IN [place] [id number] [place] [address]
[~2018-02-02 14:45] MED LIST changes: -BUSPAR10 MG PO; -NAMENDA5 MG PO; -TRAZODONE HCL50 MG PO
[2018-02-02] MEDS ORDERED: LANOXIN125 MCG PO (15:00)
[2018-02-02] MEDS ORDERED: COZAAR100 MG PO (15:05)
[2018-02-02] MEDS ORDERED: NAMENDA5 MG PO (15:06)
[2018-02-02 19:01] VITALS: BP 138/87
[2018-02-02 19:06] LABS: BASOPHILS 0 % (0-2); EOSINOPHILS 0 % (0-7); HEMATOCRIT 37.3 % (36.0-48.0); HEMOGLOBIN 11.4 g/dL (12-16); IMMATURE GRANULOCYTES 0.2 % (0-5); LYMPHOCYTES 5.6 % (15-50); MCH 24.7 pg (26.0-34.0); MCHC 30.6 g/dL (31.0-37.0); MCV 80.7 fL (80.0-100.0); MEAN PLATELET VOLUME 11.9 fL (7.4-10.4); MONOCYTES 5.7 % (2-11); NEUTROPHILS 88.5 % (40-80); RBC 4.62 10x6/uL (4.00-5.40); RDW 17.2 % (11.5-14.5); WBC 14.1 10x3/uL (4.8-10.8)
[2018-02-02 19:14] LABS: PLATELET COUNT 188 10x3/uL (130-400)
[2018-02-02 19:21] LABS: APTT 25.7 SECONDS (22.8-39.4); INR 1.09 (0.85-1.17); PROTIME 13.7 SECONDS (11.6-15.0)
[2018-02-02 19:24] LABS: APPEARANCE CLEAR (CLEAR); COLOR DK YELLOW (YELLOW)
[2018-02-02 19:25] LABS: BILIRUBIN NEGATIVE (NEGATIVE); GLUCOSE NEGATIVE (NEGATIVE); KETONE NEGATIVE (NEGATIVE); NITRITE NEGATIVE (NEGATIVE); PROTEIN 1+ mg/dL (NEGATIVE); SPECIFIC GRAVITY 1.025 (1.005-1.020); UROBILINOGEN NORMAL (NORMAL)
[2018-02-02 20:01] VITALS: BP 120/71
[2018-02-02 20:15] LABS: ALBUMIN 3.4 g/dL (3.4-5.0); ALKALINE PHOSPHATASE 67 U/L (46-116); ALT (SGPT) 18 U/L (10-68); BILIRUBIN - TOTAL 0.37 mg/dL (0.2-1.3); CALC OSMOLALITY 292 mosm/kg (275-300); CALCIUM 8.7 mg/dL (8.5-10.1); CARBON DIOXIDE 26.6 mmol/L (21.0-32.0); CHLORIDE - SERUM 109 mmol/L (98-107); CREATININE - SERUM 1.2 mg/dL (0.6-1.3); GLUCOSE 110 mg/dL (74-106); POTASSIUM - SERUM 3.9 mmol/L (3.5-5.1); PROTEIN - SERUM 6.6 g/dL (6.4-8.2); SODIUM 144 mmol/L (136-145); UREA NITROGEN 26 mg/dL (7-18); eGFR NON AFRICAN AMERICAN 45 mL/min (90-120)
[2018-02-02 20:27] LABS: CKMB 2.5 U/L (0.0-3.6); CREATINE KINASE 80 UL (21-215); MAGNESIUM - SERUM 2.1 mg/dL (1.8-2.4); TROPONIN-I < 0.017 ng/mL (0.000-0.060)
[2018-02-03 03:55] VITALS: BP 126/72; BMI 30.1
[2018-02-03 05:53] LABS: BASOPHILS 0 % (0-2); EOSINOPHILS 0 % (0-7); HEMATOCRIT 35.8 % (36.0-48.0); HEMOGLOBIN 10.9 g/dL (12-16); IMMATURE GRANULOCYTES 0.2 % (0-5); LYMPHOCYTES 10.6 % (15-50); MCH 24.8 pg (26.0-34.0); MCHC 30.4 g/dL (31.0-37.0); MCV 81.5 fL (80.0-100.0); MEAN PLATELET VOLUME 10.7 fL (7.4-10.4); NEUTROPHILS 84.2 % (40-80); PLATELET COUNT 155 10x3/uL (130-400); RBC 4.39 10x6/uL (4.00-5.40); RDW 16.9 % (11.5-14.5)
[2018-02-03 06:03] LABS: WBC 9.5 10x3/uL (4.8-10.8)
[2018-02-03 06:28] LABS: ALBUMIN 3.3 g/dL (3.4-5.0); ANION GAP 10.1 mmol/L (8-16); BILIRUBIN - TOTAL 0.47 mg/dL (0.2-1.3); CALCIUM 8.4 mg/dL (8.5-10.1); CARBON DIOXIDE 29.2 mmol/L (21.0-32.0); CHOL - HDL RATIO 2.9 ratio (2.3-4.1); CREATININE - SERUM 1.1 mg/dL (0.6-1.3); LDL-HDL RATIO 1.5 ratio (1.5-3.5); POTASSIUM - SERUM 4.3 mmol/L (3.5-5.1); PROTEIN - SERUM 6.4 g/dL (6.4-8.2); THYROID STIMULATING HORMONE 2.12 uIU/mL (0.36-3.74)
[2018-02-03 08:05] VITALS: BP 159/98
[2018-02-03 10:28] VITALS: BMI 30.1
[2018-02-03 19:31] VITALS: BP 143/74
[2018-02-04 06:15] LABS: RAPID PLASMA REAGIN Non Reactive (Non Reactive)
[2018-02-04 08:17] LABS: FOLATE (FOLIC ACID) - SERUM 18.8 ng/mL (>3.0)
[2018-02-04 09:35] VITALS: BP 154/99
[2018-02-04 22:32] VITALS: BP 134/64; BP 146/69
[2018-02-05 08:18] VITALS: BP 134/94
[2018-02-05 19:57] VITALS: BP 103/56
[2018-02-06 07:48] VITALS: BP 137/56
[2018-02-06 08:08] LABS: VITAMIN D 25 HYDROXY 46.5 ng/mL (30.0-100.0)
[2018-02-06 20:23] VITALS: BP 142/79
[2018-02-07 08:55] VITALS: BP 136/72
[2018-02-07 09:16] VITALS: Ht 160 cm; Wt 72.4 kg
[2018-02-07 14:35] LABS: APPEARANCE SL CLDY (CLEAR); BILIRUBIN NEGATIVE (NEGATIVE); COLOR DK YELLOW (YELLOW); GLUCOSE NEGATIVE (NEGATIVE); KETONE NEGATIVE (NEGATIVE); NITRITE NEGATIVE (NEGATIVE); PROTEIN TRACE mg/dL (NEGATIVE); UROBILINOGEN NORMAL (NORMAL)
[2018-02-07 14:36] LABS: BACTERIA MODERATE /hpf (NONE SEEN); MUCUS <1+ /lpf (NONE SEEN)
[2018-02-07 21:12] VITALS: BP 93/54
[2018-02-08 08:15] VITALS: BP 156/66; BP 157/70
[2018-02-08 19:42] VITALS: BP 106/50; BP 131/60
[2018-02-09 10:47] VITALS: BP 116/60; BP 164/83
[2018-02-09 19:48] VITALS: BP 126/65
[2018-02-10 09:55] VITALS: BP 124/70
[2018-02-10 21:20] VITALS: BP 134/60; BP 144/57
[2018-02-11 08:00] VITALS: BP 139/86
[2018-02-11 20:06] VITALS: BP 140/70
[2018-02-12 07:00] VITALS: BP 152/88
[2018-02-12 20:21] VITALS: BP 108/60
[2018-02-13 07:00] VITALS: BP 146/71
[2018-02-13 19:36] VITALS: BP 122/63
[2018-02-14 07:00] VITALS: BP 142/71
[2018-02-14 19:41] VITALS: BP 112/57
[2018-02-15 10:22] VITALS: BP 149/87
[2018-02-15 20:15] VITALS: BP 135/70
[2018-02-16 09:00] VITALS: BP 147/78
[2018-02-16 19:23] VITALS: BP 123/54
[2018-02-17] MEDS ORDERED: LANOXIN125 MCG PO (08:05)
[2018-02-17] MEDS ORDERED: NAMENDA5 MG PO (08:09)
[2018-02-17] MEDS ORDERED: BUSPAR10 MG PO (08:09)
[2018-02-17] MEDS ORDERED: TRAZODONE HCL50 MG PO (08:10)
[2018-02-17 09:14] VITALS: BP 149/71
== END 2018-02-17 10:30 | disposition home or self-care (01) | DRG 57 ==
LOC: D.ER 14:45 → D.PSYCH 21:17 → D.EDHOLD 21:17 → D.PSYCH 21:46
PROVIDERS: Family Medicine; Psychiatry & Neurology Psychiatry
DX: G30.1 Alzheimer's disease with late onset (principal); F02.81 Dementia in other diseases classified elsewhere, unspecified severity, with behavioral disturbance; N39.0 Urinary tract infection, site not specified; K21.9 Gastro-esophageal reflux disease without esophagitis; I11.0 Hypertensive heart disease with heart failure; I50.9 Heart failure, unspecified; H40.9 Unspecified glaucoma; G62.9 Polyneuropathy, unspecified; E03.9 Hypothyroidism, unspecified; J44.9 Chronic obstructive pulmonary disease, unspecified; D64.9 Anemia, unspecified; I48.91 Unspecified atrial fibrillation; B95.2 Enterococcus as the cause of diseases classified elsewhere; M19.019 Primary osteoarthritis, unspecified shoulder; M17.10 Unilateral primary osteoarthritis, unspecified knee; E53.8 Deficiency of other specified B group vitamins; E55.9 Vitamin D deficiency, unspecified